=== PATIENT | male | born 1955 | race Caucasian/White ===

== ENCOUNTER 2018-05-27 08:56 | Outpatient (CLI) | payer OTHER | END 2018-05-27 08:57 | disposition home or self-care (01) | LOC: MWLC DTY 08:56 | PROVIDERS: ATTEND Internal Medicine | DX: Z71.3 Dietary counseling and surveillance (principal) | CPT/HCPCS: 97802 ==

== ENCOUNTER 2019-08-02 14:25 | Outpatient (CLI) | payer BC ==
[2019-08-02 15:32] LABS: Hemoglobin 15.1 g/dL (14.0-18.0); Mean Corpuscular HGB CONC 32.1 g/dL (32.0-36.0); Mean Corpuscular Hemoglobin 26.4 pg (27.0-31.0); Mean Corpuscular Volume 82.4 fL (78.0-98.0); Mean Platelet Volume 9.1 fL (7.4-10.4); Platelet Count 186 thou/uL (130-400); White Blood Cell (WBC) Count 10.6 thou/uL (4.8-10.8)
[2019-08-02 15:39] LABS: Prothrombin Time 13.2 SEC (12.0-14.7)
[2019-08-02 15:52] LABS: Anion Gap 14 mmol/L (10-20); BUN (Urea Nitrogen) 18 mg/dL (8.4-25.7); Calc. Creatinine Clearance 0 mL/min (70-130); Calcium 10.1 mg/dL (7.8-10.44); Carbon Dioxide 23 mmol/L (23-31); Chloride 106 mmol/L (98-107); Estimated GFR-MDRD 55; Glucose 119 mg/dL (80-115); Potassium 3.9 mmol/L (3.5-5.1); Sodium 139 mmol/L (136-145)
--- NOTE | 2019-08-03 16:22 | EKG ---
Test Reason : Blood Pressure : / mmHG Vent. Rate : 056 BPM Atrial Rate : 056 BPM P-R Int : 162 ms QRS Dur : 092 ms QT Int : 424 ms P-R-T Axes : 016 050 006 degrees QTc Int : 409 ms Sinus bradycardia Otherwise normal ECG No previous ECGs available Confirmed by ANA JOYNER ([id number]) on 08/03/2019 4:21:56 PM Referred By: SILVANA Confirmed By:ANA JOYNER
== END 2019-08-02 14:26 | disposition home or self-care (01) ==
LOC: LABBT 14:25
PROVIDERS: ATTEND Urology
DX: Z01.818 Encounter for other preprocedural examination (principal); N20.1 Calculus of ureter
CPT/HCPCS: 80048; 85027; 85610; 85730; 93005; 93010

== ENCOUNTER 2019-08-03 12:08 | Day surgery (SDC) | payer BC ==
[2019-08-02 14:46] VITALS: BMI 32.6
[2019-08-03] MEDS ORDERED: Levofloxacin 500 mg/D5W 100 ml Premix Bag ONE (14:06)
[2019-08-03] MEDS ORDERED: Iothalamate Meglumine 60% 50 ML VIAL FS ONE (14:28)
[2019-08-03] MEDS ORDERED: Fentanyl 100 MCG/2 ML VIAL ONE (14:36)
[2019-08-03] MEDS ORDERED: Oxybutynin 5 MG TAB ONE (15:42)
[2019-08-03] MEDS ORDERED: Phenazopyridine HCl 97.5 MG TABLET ONE (15:42)
--- NOTE | 2019-08-03 21:50 | OP ---
DATE OF PROCEDURE: 08/03/2019 PREOPERATIVE DIAGNOSES: Left ureteral stone and right renal stone. POSTOPERATIVE DIAGNOSIS: Right renal stone. PROCEDURES PERFORMED: Left ureteroscopy with retrograde pyelogram and 4.8 x 26 double-J ureteral stent, right ureteroscopy with laser lithotripsy, basket extraction of stone, 4.8 x 26 cm double-J ureteral stent. ANESTHESIA: General. COMPLICATIONS: None. BLOOD LOSS: Minimal. SPECIMEN: Right renal stone fragments. DESCRIPTION OF PROCEDURE: After informed consent, the patient was taken to the operating room, transferred to the table on his own power. Anesthesia was established. A time-out was performed showing the correct patient, site, and procedure. Preoperative antibiotics were administered. He was prepped and draped in the lithotomy position. 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 The left ureteral orifice was cannulated with a wire, which was negotiated up to the level of the renal pelvis under fluoroscopic guidance. The scope was then withdrawn and reinserted alongside the wire into the distal ureter. The distal ureter appeared somewhat edematous, consistent with recent stone passage. I performed a retrograde pyelogram noting no hydroureter, hydronephrosis, or filling defects. The scope was then passed up to the left renal pelvis, noting no abnormalities. I then passed a 4.8 x 26 cm double-J ureteral stent over the wire with a curl in the kidney and curl in the bladder under fluoroscopic guidance. The ureteroscope was then reinserted and the right ureteral orifice cannulated with a wire which was passed up to the renal pelvis under fluoroscopic guidance. I then passed a 35-cm access sheath over the wire into the distal ureter and a retrograde pyelogram was performed through this showing good filling of the ureter and renal pelvis. The access sheath was then passed up to the proximal ureter. The flexible ureteroscope was then passed through this into the renal pelvis, which was systematically examined noting no abnormalities other than the large stone seen in the mid pole. The 200 micron laser fiber was utilized to dust this into very small pieces. There were only a couple of clinically significant stone fragments remaining at the end. I utilized a 1.9-cm Nitinol basket to retrieve the stone fragments which were passed off as specimen. The renal pelvis was then reexamined noting no clinically significant stone fragments. The wire was replaced and the scope and access sheath withdrawn. A 4.8 x 26 double-J ureteral stent was placed over the wire with a curl in the kidney and curl in the bladder under fluoroscopic guidance. The patient was then awoke from anesthesia, transferred back to his hospital bed and taken to PACU in stable condition where he will be discharged to home upon recovery. Job ID: [id number]
[2019-08-06 15:10] LABS: CA Oxalate Monohydrate 98 % (.); Color Brown (.); Stone Weight 19.2 mg (.)
== END 2019-08-03 17:50 | disposition home or self-care (01) ==
LOC: SDC 12:08
PROVIDERS: ATTEND Urology
PROC: 0T768DZ Dilation of Right Ureter with Intraluminal Device, Via Natural or Artificial Opening Endoscopic (ICD-10-PCS; principal; 2019-08-03)
PROC: 0TF38ZZ Fragmentation in Right Kidney Pelvis, Via Natural or Artificial Opening Endoscopic (ICD-10-PCS; principal; 2019-08-03)
DX: N20.0 Calculus of kidney (principal); I10 Essential (primary) hypertension; R73.03 Prediabetes; G47.30 Sleep apnea, unspecified; Z79.899 Other long term (current) drug therapy; Z99.89 Dependence on other enabling machines and devices
CPT/HCPCS: 76000; 82365; 88300; C1769; J1956; J3010

== ENCOUNTER 2020-04-27 09:10 | Outpatient (CLI) | payer BC ==
--- NOTE | 2020-04-27 09:34 | RAD ---
Radiograph abdomen one view: 04/27/2020 HISTORY: 64-year-old male with calculus of kidney. COMPARISON: None available FINDINGS: No calculi are visualized overlying the renal shadows. There is a 4 x 2 mm focal calcific density overlying the lateral aspect of the shadow of the bladder in the left hemipelvis. This could be a phlebolith or a calculus at the UVJ. Caudal to that, there are 2 phleboliths adjacent to each other. Bowel gas pattern is normal. No organomegaly. IMPRESSION: Small focal calcification in left hemipelvis could either be a phlebolith or a calculus at left urete rovesical junction. If the patient is currently asymptomatic, then this is likely to be a phlebolith.
== END 2020-04-27 09:11 | disposition home or self-care (01) ==
LOC: BICRAD 09:10
PROVIDERS: ATTEND Urology
DX: N20.0 Calculus of kidney (principal); M61.9 Calcification and ossification of muscle, unspecified
CPT/HCPCS: 74018

== ENCOUNTER 2021-03-26 15:10 | Outpatient (CLI) | payer BC | END 2021-03-26 15:11 | disposition home or self-care (01) | LOC: RAD 15:10 | PROVIDERS: ATTEND Urology | DX: N20.0 Calculus of kidney (principal); R93.5 Abnormal findings on diagnostic imaging of other abdominal regions, including retroperitoneum; M89.8X8 Other specified disorders of bone, other site | CPT/HCPCS: 74018 ==

== ENCOUNTER 2022-03-22 13:16 | Outpatient (CLI) | payer MEDICARE | END 2022-03-22 13:17 | disposition home or self-care (01) | LOC: RAD 13:16 | PROVIDERS: ATTEND Urology | DX: N20.0 Calculus of kidney (principal); R19.03 Right lower quadrant abdominal swelling, mass and lump | CPT/HCPCS: 74018 ==

== ENCOUNTER 2022-09-03 10:19 | Outpatient (CLI) | payer MEDICARE | END 2022-09-03 10:20 | disposition home or self-care (01) | LOC: CTENTCT 10:19 | PROVIDERS: ATTEND Otolaryngology Plastic Surgery within the Head & Neck | DX: J01.91 Acute recurrent sinusitis, unspecified (principal) | CPT/HCPCS: 70486 ==

== ENCOUNTER 2023-03-25 11:11 | Outpatient (CLI) | payer MEDICARE | END 2023-03-25 11:12 | disposition home or self-care (01) | LOC: RAD 11:11 | PROVIDERS: ATTEND Internal Medicine | DX: N20.0 Calculus of kidney (principal); Z87.442 Personal history of urinary calculi | CPT/HCPCS: 74018 ==

== ENCOUNTER 2024-04-22 10:55 | Outpatient (CLI) | payer MEDICARE | END 2024-04-22 10:56 | disposition home or self-care (01) | LOC: RAD 10:55 | PROVIDERS: ATTEND Internal Medicine | DX: N20.0 Calculus of kidney (principal) | CPT/HCPCS: 74018 ==